=== PATIENT | female | born 2000 | race Caucasian/White ===

== ENCOUNTER 2024-01-01 16:33 | Emergency (ER) | payer BC, SELFPAY ==
[2024-01-01 16:58] VITALS: BP 121/73; PULSE 74; RESP 18; TEMP 36.8; O2SAT 99; BMI 28.0
--- NOTE | 2024-01-01 17:07 | DI.RAD.S_ITS ---
PROCEDURE: XR HIP W PEL IF DONE RT 2V INDICATIONS: pain, slid into second base landed wrong TECHNIQUE: AP pelvis with lateral view(s) of the right hip(s). COMPARISON: None. FINDINGS: Bones: No fractures or dislocations. Pelvic ring appears intact. No suspicious bony lesions. Soft tissues: The visualized bowel gas pattern is normal. No suspicious soft tissue calcifications. IMPRESSION: No acute bony abnormality. If symptoms persist with conservative management, consider cross-sectional imaging such as CT or MRI. Approved by: Lilly Rodriguez M.D.,Ph.D. on 01/01/2024 at 19:06
--- NOTE | 2024-01-01 17:07 | DI.RAD.S_ITS ---
PROCEDURE: XR KNEE LT 3V INDICATIONS: pain, slid into second base landed wrong TECHNIQUE: 3 views of the knee were acquired. COMPARISON: None. FINDINGS: Bones: No acute displaced fracture or dislocation. Soft tissues: Possible small amount joint fluid. IMPRESSION: No acute radiographic abnormality. Possible small joint fluid. If there is high concern for further derangement, consider MRI evaluation. Dictated by: Mamadou Shepherd M.D. on 01/01/2024 at 18:01 Approved by: Mamadou Shepherd M.D. on 01/01/2024 at 18:02
--- NOTE | 2024-01-01 19:15 | ED_ITS ---
HPI - Extremity Injury (Lower) General Chief Complaint: Extremity Injury, Lower Stated Complaint: knee and hip px, playing softball Time Seen by Provider: 01/01/24 19:03 Source: patient Mode of arrival: Ambulatory Limitations: no limitations History of Present Illness HPI Narrative: 23-year-old female with no reported medical issues complaint of left knee pain dose sliding into 2nd base while playing softball Saturday also has a complaint of right hip pain as well with contusions and abrasions on the left knee and leg. Patient is able to ambulate bear weight. Patient states does have some pain with weight-bearing. Denies any numbness tingling or weakness. Does have some abrasions over the left knee. States tetanus is up-to-date. Does have quite a pretty bruising over the left knee left anterior leg. Patient denies any other injuries. States that they were sliding in on with the left leg lower and right leg extending outwards but landed sort of awkwardly when it occurred. Denies any medical issues. Denies any prior surgeries no prior interventions hips or knees. Related Data Home Medications Medication Instructions Recorded Confirmed fluoxetine 10 mg capsule 10 mg PO DAILY 01/21/20 01/21/20 Allergies Allergy/AdvReac Type Severity Reaction Status Date / Time fluoxetine Allergy Severe Hives Verified 01/01/24 17:06 Review of Systems Review of Systems ROS Unobtainable: All systems reviewed & are unremarkable except as noted in HPI and below Patient History Social History Smoking Status: Never smoker Smoking Status: Never smoker alcohol intake frequency: holidays/special occasions only Substance Use Type: does not use Exam Narrative Exam Narrative: GENERAL: Alert and oriented x three, female in mild distress. HEENT: Head normocephalic, atraumatic, EOMI, pupils reactive, face symmetric, moist mucous membranes NECK: Supple, full range of motion EXTREMITIES: Normal range of motion, no clubbing or edema. Patient's left knee she has some abrasion, some mild swelling to have some ecchymosis and some tracking down 3 anterior lyon no large areas of hematoma. Patient has some mild tenderness throughout the knee. Patient has no laxity on examination normal anterior posterior drawer, some mild tenderness with valgus testing. Patient does have some tenderness with compression test. Patient's right hip she is some tenderness over the right greater trochanter. Does have good range of motion does have some increased pain with external rotation of the hip in a frog-leg position. Otherwise flexion-extension internal rotation patient tolerates well. No obvious ecchymosis although patient does have a tattoo area. There is 2+ dorsalis pedis pulses bilaterally. 5/5 muscle strength. Normal sensation throughout. NEUROLOGICAL: Cranial nerves II through XII grossly intact. Moving all extremities SKIN: Warm, dry, no petechiae, no rashes or lesions. Initial Vital Signs Initial Vital Signs: Vital Signs Temperature 98.2 F 01/01/24 16:58 Pulse Rate 74 01/01/24 16:58 Respiratory Rate 18 01/01/24 16:58 Blood Pressure 121/73 01/01/24 16:58 Pulse Oximetry 99 01/01/24 16:58 Oxygen Delivery Method Room Air 01/01/24 16:58 Course Orders Ordered: ED Orders 01/01/24 17:07 XR hip w pel if done RT 2V Stat XR knee LT 3V Stat Vital Signs Vital signs: Vital Signs - 8 hr 01/01/24 16:58 01/01/24 19:55 Temperature 98.2 F 97.7 F Pulse Rate 74 72 Respiratory Rate 18 16 Blood Pressure 121/73 118/70 Pulse Oximetry 99 99 Oxygen Delivery Method Room Air Room Air MDM - Extremity Injury (Lower) Imaging Data Extremity x-ray #1: Radiologist's Impression: Mary Giron??23??F??2000 ? Allergy/Adv: fluoxetine Close Knee X-Ray (Signed) JoaoMamadou - 01/01/24 Hip X-Ray (Signed) Lilly Rodriguez - 01/01/24 Launch?[address] [address] XRay Report Signed Patient: Mary Giron MR#: [id number] : 2000 Acct:[id number] Age/Sex: 23 / F Date of Service: 01/01/24 Loc: ED Accession Number: [id number] Procedure: XR knee LT 3V Ordering Provider: Damien Menon MD PROCEDURE: XR KNEE LT 3V INDICATIONS: pain, slid into second base landed wrong TECHNIQUE: 3 views of the knee were acquired. COMPARISON: None. FINDINGS: Bones: No acute displaced fracture or dislocation. Soft tissues: Possible small amount joint fluid. IMPRESSION: No acute radiographic abnormality. Possible small joint fluid. If there is high concern for further derangement, consider MRI evaluation. Dictated by: Mamadou Shepherd M.D. on 01/01/2024 at 18:01 Approved by: Mamadou Shepherd M.D. on 01/01/2024 at 18:02 Extremity x-ray #2: Radiologist's Impression: Mary Giron??23??F??2000 ? Allergy/Adv: fluoxetine Close Knee X-Ray (Signed) Mamadou Shepherd - 01/01/24 Hip X-Ray (Signed) Lilly Rodriguez - 01/01/24 Launch?[address] [address] XRay Report Signed Patient: Mary Giron MR#: [id number] : 2000 Acct:[id number] Age/Sex: 23 / F Date of Service: 01/01/24 Loc: ED Accession Number: [id number] Procedure: XR hip w pel if done RT 2V Ordering Provider: Damien Menon MD PROCEDURE: XR HIP W PEL IF DONE RT 2V INDICATIONS: pain, slid into second base landed wrong TECHNIQUE: AP pelvis with lateral view(s) of the right hip(s). COMPARISON: None. FINDINGS: Bones: No fractures or dislocations. Pelvic ring appears intact. No suspicious bony lesions. Soft tissues: The visualized bowel gas pattern is normal. No suspicious soft tissue calcifications. IMPRESSION: No acute bony abnormality. If symptoms persist with conservative management, consider cross-sectional imaging such as CT or MRI. Approved by: Lilly Rodriguez M.D.,Ph.D. on 01/01/2024 at 19:06 MDM Narrative Medical decision making narrative: 23-year-old female likely has left knee and right hip strain but does have some tenderness over the greater trochanter increased pain with external rotation of the hip some discomfort with compression test. Plan to weightbear as tolerated, NSAIDs/Tylenol as needed and follow up in 10-14 days for recheck. X-ray imaging prelim does not show any change. They were EMR issues with reports crossing over discussed with the patient and will call with any discrepancies. Formal reads show possible small joint fluid but no other acute changes of the knee, hip shows no acute bony change. Patient is able to ambulate on her own discussed if she would like crutches she states she was quite painful in the 1 leg so we will provide this. She was given contact for primary care. Discharge Plan Departure Patient Disposition: Home Clinical Impression: Contusion of knee, left, Left knee sprain, Hip pain, right Instructions: DI for Knee Sprain, DI for Hip Pain Activity Restrictions/Additional Instructions: Follow up next 10-14 days if symptoms are not improving. Continue to weightbear as tolerated. You can take ibuprofen up to 600 mg every 6 hours and/or acetaminophen up to a 1000 mg every 6 hours as needed for pain Keep abrasions clean and dry, wash daily with water. Please return for rapidly worsening, new or concerning changes. Prescriptions: No Action fluoxetine 10 mg capsule 10 mg PO DAILY Referrals: Miscellaneous,Doctor, [Primary Care Provider] - Stand Alone Forms: Patient Portal/API
[2024-01-01 19:55] VITALS: BP 118/70; PULSE 72; RESP 16; TEMP 36.5; O2SAT 99
== END 2024-01-01 19:56 | disposition home or self-care (01) ==
PROVIDERS: Emergency Provider Emergency Medicine
DX: S80.02XA Contusion of left knee, initial encounter (principal); S83.92XA Sprain of unspecified site of left knee, initial encounter; M25.551 Pain in right hip; W18.30XA Fall on same level, unspecified, initial encounter; Y93.64 Activity, baseball
CPT/HCPCS: 73502; 73562; 99281; 99283

== ENCOUNTER → 2024-05-21 07:33 | Outpatient (CLI) | payer BC, SELFPAY ==
[2024-05-21 08:54] LABS: Add Manual Diff / Slide Review NO; Basophils Absolute Auto 0 /uL (0-100); Basophils Percent Auto 0.6 % (0-2); Eosinophils Absolute Auto 0 /uL (0-450); Hematocrit 41.5 % (36-46); Hemoglobin 14.2 g/dL (12.0-16.0); Lymphocytes Absolute Auto 1600 /uL (1100-4500); Lymphocytes Percent Auto 33.4 % (25-40); Mean Corpuscular HGB Conc 34.1 % (30-36); Mean Corpuscular Hemoglobin 31.2 PG (26-34); Mean Corpuscular Volume 91.4 fL (80-100); Monocytes Absolute Auto 400 /uL (0-900); Monocytes Percent Auto 7.4 % (3-14); Neutrophils Absolute Auto 2700 /uL (1500-7000); Neutrophils Percent Auto 57.6 % (50-75); Platelet Count 178 X10^3/uL (150-400); Red Blood Cell Count 4.54 X10^6/uL (4.0-5.2); Red Cell Distribution Width 13.4 % (11.6-14.8); White Blood Cell Count 4.8 X10^3/uL (4.5-11.0)
[2024-05-21 09:02] LABS: Hemoglobin A1C% w Est Avg Glu 4.7 % (4.0-6.0)
[2024-05-21 09:08] LABS: Cholesterol 206 mg/dL (140-199); HDL Cholesterol 51 mg/dL (40-60); LDL Cholesterol Calculated 140 mg/dL (<100); Triglycerides 73 mg/dL (35-150)
[2024-05-21 09:13] LABS: HEMOLYSIS < 15 (0-50); Iron 178 ug/dL (37-170)
[2024-05-21 09:24] LABS: Percent Iron Saturation 63 % (15-50); Total Iron Binding Capacity 281 ug/dL (265-497); Transferrin 252 mg/dL (206-381)
[2024-05-21 09:42] LABS: TSH w/ Reflex to FT4 2.17 uIU/mL (0.47-4.68)
[2024-05-21 09:43] LABS: Ferritin 20 ng/mL (6-137)
== END ==
PROVIDERS: PCP Family Medicine; Referring Provider Family Medicine; Visit Provider Family Medicine
DX: R51.9 Headache, unspecified (principal); G89.29 Other chronic pain; Z68.29 Body mass index [BMI] 29.0-29.9, adult; Z83.49 Family history of other endocrine, nutritional and metabolic diseases; Z97.5 Presence of (intrauterine) contraceptive device
CPT/HCPCS: 36415; 80061; 82728; 83036; 83540; 83550; 84443; 85025

== ENCOUNTER → 2024-06-22 13:54 | Outpatient (CLI) | payer BC, SELFPAY ==
--- NOTE | 2024-06-22 13:56 | DI.RAD.S_ITS ---
PROCEDURE: XR HUMERUS LT 2V INDICATIONS: non-palpable nexplanon in left upper arm TECHNIQUE: 2 views of the humerus were acquired. COMPARISON: None. FINDINGS: Bones: No fractures or dislocations. No suspicious bony lesions. Soft tissues: 4.1 cm subdermal linear foreign body consistent with contraceptive implant within the distal anterior soft tissues of the arm, proximal to the antecubital fossa. No suspicious soft tissue calcifications. IMPRESSION: No acute bony abnormality. Subdermal contraceptive implant noted. Dictated by: Rahat Hale M.D. on 06/23/2024 at 3:19 Approved by: Rahat Hale M.D. on 06/23/2024 at 3:21
== END ==
LOC: RAD 13:56
PROVIDERS: PCP Family Medicine; Referring Provider Student in an Organized Health Care Education/Training Program; Visit Provider Student in an Organized Health Care Education/Training Program
DX: Z30.46 Encounter for surveillance of implantable subdermal contraceptive (principal)
CPT/HCPCS: 73060

== ENCOUNTER 2024-06-26 06:13 | Day surgery (SDC) | payer BC, SELFPAY ==
[2024-06-23 09:54] VITALS: BMI 29.3
[2024-06-26] VITALS (7 sets, daily range): BP systolic 90–117; BP diastolic 47–74; PULSE 60–79; RESP 16–18; TEMP 36.2–36.8; O2SAT 95–100; BMI 28.5
[2024-06-26] MEDS: LACTATED RINGERS 1,000 ML 42 ML IV (07:14)
--- NOTE | 2024-06-26 07:41 | PM.PREOP ---
Pre-operative Note Interval Note History & Physical reviewed/Exam performed by Physician: Yes Changes to H&P: No H&P completed within 30 days and has changed as indicated here:: xray shows Nexplanon in the left arm
[2024-06-26] MEDS: BUPIVACAINE 0.5% W/ EPI (PF) 30 ML VIAL 10 ML INJ (08:07)
--- NOTE | 2024-06-26 08:08 | PM.OP.1 ---
Operative Date/Time/Diagnoses Date of procedure: 06/26/24 Time of procedure: 07:45 Pre-op diagnosis: Deep Nexplanon in the left arm Post-op diagnosis: same Procedure & Clinicians Procedure: Nexplanon removal from left arm Same procedure as scheduled: Yes Indications: 24yo F with Nexplanon in place, too deep to remove comfortably in the office. Surgeon: Elena Peraza Click Yes if Unassisted: Yes Anesthesia Type: MAC +/- Operative Notes Findings: Nexplanon in the left arm on xray, palpable in certain positions of the left arm Specimen(s): none sent Estimated Blood Loss (mL): 1 Blood products transfused: none Procedure in detail: Patient was taken to the OR where monitored anesthesia and sedation was obtained without difficulty. Her left arm was then prepped with Chlorhexidine and draped. SCDs were placed bilaterally for VTE prophylaxis. The area was then anesthetized with 5 cc of 1% Lidocaine with ephinephrine.? A 1 cm incision was made with the scalpel over the distal tip of the Nexplanon. The capsule was then manipulated through the incision where it was grasped, freed of connective tissue, then easily withdrawn intact.?? The incision was dressed with steri-strips and a pressure dressing was applied. There were no complications. Surgical counts were correct x2. She was taken to the PACU for recovery. Complications: none Post-operative Condition: stable Disposition: same day surgery Plan for aftercare: Discharge to home once recovered from anesthesia.
== END 2024-06-26 08:50 | disposition home or self-care (01) ==
PROVIDERS: PCP Family Medicine; Referring Provider Student in an Organized Health Care Education/Training Program; Visit Provider Student in an Organized Health Care Education/Training Program
PROC: (CPT 11982; principal; 2024-06-26 07:45)
DX: Z30.46 Encounter for surveillance of implantable subdermal contraceptive (principal)
CPT/HCPCS: 11982; J2250; J2704

== ENCOUNTER → 2024-09-23 16:00 | Outpatient (CLI) | payer BC, SELFPAY ==
[2024-09-23 18:39] LABS: HEMOLYSIS < 15 (0-50); Iron 92 ug/dL (37-170)
[2024-09-23 18:50] LABS: Percent Iron Saturation 30 % (15-50); Total Iron Binding Capacity 308 ug/dL (265-497); Transferrin 247 mg/dL (206-381)
== END ==
PROVIDERS: PCP Family Medicine; Referring Provider Family Medicine; Visit Provider Family Medicine
DX: E61.1 Iron deficiency (principal); E83.110 Hereditary hemochromatosis
CPT/HCPCS: 36415; 83540; 83550